=== PATIENT | male | born 1960 | race Caucasian/White ===

== ENCOUNTER 2019-10-07 11:44 | Outpatient (CLI) | payer OTHER ==
--- NOTE | 2019-10-07 12:05 | RAD ---
Exam:3 views right foot HISTORY: Pain COMPARISON: None FINDINGS: Mild degenerative change of the first interphalangeal joint space and first metatarsal phal angeal joint space. No fracture, cortical irregularity or periosteal reaction. No significant soft tissue swelling. Minimal hypertrophy of the calcaneus at the plantar aponeurosis insertion site. Lisfranc alignment is maintained. IMPRESSION: Mild degenerative changes involving the first digit
--- NOTE | 2019-10-07 12:33 | RAD ---
LEFT FOOT 3 VIEWS: DATE: 10/07/2019. FINDINGS: No acute fracture was seen. There are a few flecks of bone at the base of the 5th metatarsal alongsi de of the tuberosity that probably are from an old injury here. A calcaneal spur was noted. There m ay be some very minor degenerative changes in the 1st MTP joint. The intertarsal joints appear beto l. IMPRESSION: Minor chronic changes, but no acute findings. POS: HOME
== END 2019-10-07 11:45 | disposition home or self-care (01) ==
LOC: BURRAD 11:44
PROVIDERS: ATTEND Family Medicine
DX: M79.671 Pain in right foot (principal); M79.672 Pain in left foot; M77.32 Calcaneal spur, left foot; M19.071 Primary osteoarthritis, right ankle and foot